=== PATIENT | female | born 1935 | race Caucasian/White ===

== ENCOUNTER 2018-06-13 13:07 | Outpatient (CLI) | payer MEDICARE ==
--- NOTE | 2018-06-13 16:01 | MRI ---
BRAIN MRI WITH AND IWHTOUT CONTRAST: DATE: 06/13/2018. HISTORY: Skin paresthesias. TECHNIQUE: Multiplanar, multisequence MR imaging of the brain is obtained with and without contrast. FINDINGS: The diffusion weighted imaging demonstrates no evidence for acute infarction. The axial gradient echo imaging demonstrates no evidence for intracranial hemorrhage. There are numerous foci of increased T2 and FLAIR signal scattered throughout the periventricular, de ep, and subcortical white matter, evidence of small-vessel disease. There is no midline shift, mass effect, or ventricular enlargement. Imaged paranasal sinuses and mastoid air cells are unremarkable aside from a few opacified mastoid ai r cells on the right. Arterial flow voids at axial level of skull base appear patent on the T2 weighted imaging. The right vertebral artery is hypoplastic distally. Postcontrast imaging demonstrates no abnormal enhancement within the brain parenchyma. IMPRESSION: Small-vessel disease. No acute findings. POS: [facility]
== END 2018-06-13 13:08 | disposition home or self-care (01) ==
LOC: SCSMRI 13:07
PROVIDERS: ATTEND Psychiatry & Neurology Neurology
DX: R20.2 Paresthesia of skin (principal); I73.9 Peripheral vascular disease, unspecified
CPT/HCPCS: 70553; 82565